=== PATIENT | male | born 1955 | race Caucasian/White ===

== ENCOUNTER 2017-07-04 11:55 | Inpatient (IN) | payer OTHER ==
--- NOTE | 2017-07-04 12:34 | PDOC ---
History of Present Illness - General Chief Complaint: Shortness of Breath Stated Complaint: SOB Time Seen by Provider: 07/04/17 12:34 - History of Present Illness Initial Comments: 07/04/17 12:41 hx HL, HTN, obesity, CHF, DM, etoh use p/w SOB for 1 week. SOB is intermittent, but now occurring at rest as well. No treatments tried. SOB a/w nausea. No CP. Exercise tolerance is reduced to 1-2 blocks. Reports compliance with lasix. Reports swelling to LE. Drinks pint of vodka nightly, drank last night. Has not drank more than usual this past week. Also ate a heavy meal last night and for . Saw PMD last week, who referred him to cards due to SOB. Was scheduled for echo and stress test next week but SOB became worse today and presented to the ED. Past History - Past Medical History Allergies/Adverse Reactions: Allergies Allergy/AdvReac Type Severity Reaction Status Date / Time No Known Allergies Allergy Verified 07/04/17 11:58 Home Medications: Ambulatory Orders Aspirin [Aspirin EC] 81 mg PO DAILY 07/04/17 Diltiazem [Cardizem -] 120 mg PO DAILY 07/04/17 Furosemide [Lasix -] 40 mg PO DAILY 07/04/17 Insulin Lispro Protamin/Lispro [Humalog Mix 75-25 Kwikpen] 40 unit SQ BID Insulin Lispro [Humalog] 10 unit SQ TID 07/04/17 Metoprolol Succinate [Toprol Xl] 50 mg PO BID 07/04/17 Simvastatin 20 mg PO DAILY 07/04/17 COPD: No Diabetes: Yes HTN: Yes Hypercholesterolemia: Yes - Suicide/Smoking/Psychosocial Hx Smoking History: Former smoker Have you smoked in the past 12 months: No If you are a former smoker, when did you quit?: 'MANY YEARS' Information on smoking cessation initiated: No Hx Alcohol Use: (daily) Drug/Substance Use Hx: No Substance Use Type: None Hx Substance Use Treatment: No Review of Systems - Review of Systems Comments:: 07/04/17 12:44 GENERAL/CONSTITUTIONAL: No fever or chills. No weakness. HEAD, EYES, EARS, NOSE AND THROAT: No change in vision. No ear pain or discharge. No sore throat. GASTROINTESTINAL: +nausea, novomiting, diarrhea or constipation. GENITOURINARY: No dysuria, frequency, or change in urination. CARDIOVASCULAR: No chest pain +shortness of breath. RESPIRATORY: No cough, wheezing, or hemoptysis. MUSCULOSKELETAL: No joint or muscle swelling or pain. No neck or back pain. +LE edema SKIN: No rash NEUROLOGIC: No headache, vertigo, loss of consciousness, or change in strength/ sensation. ENDOCRINE: No increased thirst. No abnormal weight change. HEMATOLOGIC/LYMPHATIC: No anemia, easy bleeding, or history of blood clots. ALLERGIC/IMMUNOLOGIC: No hives or skin allergy. *Physical Exam - Vital Signs Last Vital Signs Temp Pulse Resp BP Pulse Ox 97.7 F 96 H 20 148/86 97 07/04/17 11:55 07/04/17 11:55 07/04/17 11:55 07/04/17 11:55 07/04/17 11:55 - Physical Exam Comments: 07/04/17 12:48 GENERAL: Awake, alert, and fully oriented, in no acute distress HEAD: No signs of trauma EYES: PERRLA, EOMI, sclera anicteric, conjunctiva clear ENT: Auricles normal inspection, hearing grossly normal, nares patent, oropharynx clear without exudates. Moist mucosa NECK: Normal ROM, supple, no lymphadenopathy, JVD, or masses LUNGS: diminished BS at the bases, clear to auscultation bilaterally. No wheezes, and no crackles HEART: irregularly irregular, rate 90, normal S1 and S2, no murmurs, rubs or gallops ABDOMEN: Soft, nontender, normoactive bowel sounds. No guarding, no rebound. No masses. EXTREMITIES: Normal range of motion, 1+ pitting symmetric edema. No clubbing or cyanosis. No cords, erythema, or tenderness NEUROLOGICAL: Normal speech, cranial nerves intact, negative pronator drift, 5/ 5 strength in all 4 extremities, normal sensation to light touch in all 4 extremities, normal cerebellar exam, normal gait, normal reflexes and tone SKIN: Warm, Dry, normal turgor, no rashes or lesions noted. Heart Score/ECG Review - History History: Moderately suspicious - Electrocardiogram EKG: Non specific repolarization disturbance - Age Age: 45-65 - Risk Factors Based on the list above the patient has:: >/=3 risk factors or Hx atherosclerotic disease - Troponin Troponin: </= normal limit - Score Heart Score - Total: 5 #1 07/04/17 12:55 Twelve-lead EKG was performed and reviewed by me. Atrial fibrillation with a rate of 105. Normal axis. No ST elevations.+ Inferior lateral T-wave inversions and submillimeter [address] depressions. No history Afib ED Treatment Course - LABORATORY CBC & Chemistry Diagram: 07/04/17 12:45 07/04/17 12:45 Medical Decision Making - Medical Decision Making 07/04/17 12:56 62-year-old man with multiple medical problems presents with 1 week of progressive shortness of breath and new onset atrial fibrillation. Differential includes CHF versus ACS. Patient drinks alcohol daily which may cause atrial fibrillation however given heart failure it's unclear what the etiology is. Patient will require admission for shortness of breath as he is mod risk for cardiac events (heart score 5). CHADS vasc score is 4, pt will need AC for his Afib. 07/04/17 14:35 Troponin negative. BNP elevated to the thousands, likely consistent with CHF. Will admit for ACS rule out and for management of atrial fibrillation. Patient has been admitted to Dr. Apodaca for further management. Case discussed in detail with admitting physician including history, physical exam and ancillary studies. Admitting physician has assumed care for the patient, will follow all pending diagnostics and will complete the evaluation and treatment. *DC/Admit/Observation/Transfer Diagnosis at time of Disposition: Atrial fibrillation - Discharge Dispostion Condition at time of disposition: Stable Admit: Yes - Referrals - Patient Instructions - Post Discharge Activity - Attestations Physician Attestion: 07/04/17 15:00 I, Dr. Sol Lawrence MD, attest that this document has been prepared under my direction and personally reviewed by me in its entirety. I further attest, that it accurately reflects all work, treatment, procedures and medical decision -making performed by me.
[2017-07-04] MEDS ORDERED: ASPIRIN 325 MG TABLET PO ONE (12:59)
[2017-07-04] MEDS ORDERED: HEMOQUE TEST 1 EACH EACH ONE (13:04)
[2017-07-04] MEDS ORDERED: ASPIRIN 325 MG TABLET ONE (13:05)
[2017-07-04 13:09] LABS: BASOPHIL 0.4 % (0-2.0); EOSINOPHIL 0.9 % (0-4.5); MCH 31.7 pg (25.7-33.7); MEAN CELL VOLUME 93.1 fl (80-96); MEAN PLT VOLUME 7.8 fl (7.5-11.1); NEUTROPHILS 81.8 % (42.8-82.8); PLATELET COUNT 210 K/MM3 (134-434); RDW 11.8 % (11.9-15.9); WHITE BLOOD COUNT 9.4 K/mm3 (4.0-10.8)
[2017-07-04 13:31] LABS: ALBUMIN 3.8 g/dl (3.5-5.0); ALK PHOS 68 U/L (32-92); ANION GAP 11 (8-16); BILIRUBIN,TOTAL 0.8 mg/dl (0.2-1.0); CALCIUM 9.2 mg/dl (8.4-10.2); CO2 25 mmol/L (22-28); CREATININE 1.4 mg/dl (0.6-1.3); GLUCOSE,RANDOM 94 mg/dl (74-106); MAGNESIUM 1.8 mg/dL (1.8-2.4); SGOT/AST 59 U/L (10-42); SGPT/ALT 53 U/L (10-40)
[2017-07-04 14:51] LABS: ACTIVATED PTT 26.4 SECONDS (24.0-38.9)
[2017-07-04 14:56] LABS: INR 1.16 (0.82-1.09); PROTHROMBIN TIME (PATIENT) 12.9 SEC (10.2-13.0)
[2017-07-04 15:15] LABS: THYROID STIMULATING HORMONE 1.46 uIU/ml (0.358-3.74)
--- NOTE | 2017-07-04 15:45 | HP ---
CHIEF COMPLAINT: SOB, palpitations and weakness PCP: Silvina Cards: Maximino HISTORY OF PRESENT ILLNESS: This is a 62 yo man with pmhx CHF, afib, HTN, IDDM, HLD, ETOH use who presents with progressive SOB over 1 week. The patient states he has noticed decreased exercise tolerance to 2-3 [place]is[place] the [employer]. The patient states PND with 2 episodes nightly over the week. He saw his PMD for these symptoms and was referred to Dr. Stanton who scheduled patient for echo on 07/06. He denies chest pain, dizziness, cough, fevers, chills, abdominal pain , nausea and vomiting. ER course was notable for: (1) EKG afib with TWI V5, V6 Recent Travel: denies PAST MEDICAL HISTORY: see HPI PAST SURGICAL HISTORY: see HPI Social History: Smoking: denies Alcohol: 1 pint of vodka daily Drugs: denies Family History: Allergies No Known Allergies Allergy (Verified 07/04/17 11:58) HOME MEDICATIONS: Home Medications Medication Instructions Recorded Aspirin [Aspirin EC] 81 mg PO DAILY 07/04/17 Diltiazem [Cardizem -] 120 mg PO DAILY 07/04/17 Furosemide [Lasix -] 40 mg PO DAILY 07/04/17 Insulin Lispro Protamin/Lispro 40 unit SQ BID 07/04/17 [Humalog Mix 75-25 Kwikpen] Insulin Lispro [Humalog] 10 unit SQ TID 07/04/17 Metoprolol Succinate [Toprol Xl] 50 mg PO BID 07/04/17 Simvastatin 20 mg PO DAILY 07/04/17 REVIEW OF SYSTEMS CONSTITUTIONAL: Present- generalized weakness Absent: fever, chills, diaphoresis, malaise, loss of appetite, weight change HEENT: Absent: rhinorrhea, nasal congestion, throat pain, throat swelling, difficulty swallowing, mouth swelling, ear pain, eye pain, visual changes CARDIOVASCULAR: Present- palpitations, irregular heart rate Absent: chest pain, syncope, lightheadedness, peripheral edema RESPIRATORY: Present- shortness of breath Absent: cough, dyspnea with exertion, orthopnea, wheezing, stridor, hemoptysis GASTROINTESTINAL: Absent: abdominal pain, abdominal distension, nausea, vomiting, diarrhea, constipation, melena, hematochezia GENITOURINARY: Absent: dysuria, frequency, urgency, hesitancy, hematuria, flank pain, genital pain MUSCULOSKELETAL: Absent: myalgia, arthralgia, joint swelling, back pain, neck pain SKIN: Absent: rash, itching, pallor HEMATOLOGIC/IMMUNOLOGIC: Absent: easy bleeding, easy bruising, lymphadenopathy, frequent infections ENDOCRINE: Absent: unexplained weight gain, unexplained weight loss, heat intolerance, cold intolerance NEUROLOGIC: Absent: headache, focal weakness or paresthesias, dizziness, unsteady gait, seizure, mental status changes, bladder or bowel incontinence PSYCHIATRIC: Absent: anxiety, depression, suicidal or homicidal ideation, hallucinations. PHYSICAL EXAMINATION Vital Signs - 24 hr 07/04/17 07/04/17 11:55 15:21 Temperature 97.7 F 97.6 F Pulse Rate 96 H Pulse Rate [ 80 Left Apical] Respiratory 20 16 Rate Blood Pressure 148/86 Blood Pressure 152/76 [Right Arm] O2 Sat by Pulse 97 97 Oximetry (%) GENERAL: Awake, alert, and fully oriented, in no acute distress. HEAD: Normal with no signs of trauma. EYES: Pupils equal, round and reactive to light, extraocular movements intact, sclera anicteric, conjunctiva clear. No lid lag. Right eye amblyopia present. EARS, NOSE, THROAT: Ears normal, nares patent, oropharynx clear without exudates. Moist mucous membranes. NECK: Normal range of motion, supple without lymphadenopathy, JVD, or masses. LUNGS: Breath sounds equal, clear to auscultation bilaterally. No wheezes, and no crackles. No accessory muscle use. HEART: Irregular rate and rhythm, normal S1 and S2 without murmur, rub or gallop. ABDOMEN: Soft, nontender, not distended, normoactive bowel sounds, no guarding, no rebound, no masses. No hepatomegaly or splenomegaly. MUSCULOSKELETAL: Normal range of motion at all joints. No bony deformities or tenderness. No CVA tenderness. UPPER EXTREMITIES: 2+ pulses, warm, well-perfused. No cyanosis. No clubbing. No peripheral edema. LOWER EXTREMITIES: 2+ pulses, warm, well-perfused. No calf tenderness. +2 peripheral edema. NEUROLOGICAL: Cranial nerves II-XII intact. Normal speech. Normal gait. PSYCHIATRIC: Cooperative. Good eye contact. Appropriate mood and affect. SKIN: Warm, dry, normal turgor, no rashes or lesions noted, normal capillary refill. Laboratory Results - last 24 hr 07/04/17 07/04/17 07/04/17 12:45 12:45 12:45 WBC 9.4 RBC 4.41 Hgb 13.9 Hct 41.0 MCV 93.1 MCH 31.7 MCHC 34.0 RDW 11.8 L Plt Count 210 MPV 7.8 Neutrophils % 81.8 Lymphocytes % 11.0 D Monocytes % 5.9 Eosinophils % 0.9 Basophils % 0.4 PT with INR INR PTT (Actin FS) Sodium 131 L Potassium 4.1 Chloride 95 L Carbon Dioxide 25 Anion Gap 11 BUN 22 H Creatinine 1.4 H Creat Clearance w eGFR 51.35 Random Glucose 94 D Calcium 9.2 Magnesium 1.8 Total Bilirubin 0.8 AST 59 H D ALT 53 H D Alkaline Phosphatase 68 Troponin I B-Natriuretic Peptide 1266.33 H Total Protein 7.0 Albumin 3.8 Lipase 29 TSH 1.46 D 07/04/17 07/04/17 12:45 14:30 WBC RBC Hgb Hct MCV MCH MCHC RDW Plt Count MPV Neutrophils % Lymphocytes % Monocytes % Eosinophils % Basophils % PT with INR 12.9 INR 1.16 PTT (Actin FS) 26.4 Sodium Potassium Chloride Carbon Dioxide Anion Gap BUN Creatinine Creat Clearance w eGFR Random Glucose Calcium Magnesium Total Bilirubin AST ALT Alkaline Phosphatase Troponin I 0.02 B-Natriuretic Peptide Total Protein Albumin Lipase Cancelled TSH EKG- Afib with TWI V5, V6 ASSESSMENT/PLAN: A: 62 yo man with PMH CHF, afib, HTN, IDDM, ETOH use with afib P: afib - Chads2 score-4 - not on AC due to frequent falls - Cardizem - Toprol - Cards consult - telemetry monitoring - Serial troponins CHF - telemetry - Daily weights - strict I&O's - Lasix - Cards consult HTN - Toprol - Dilt DM - FS qACHS - ISS ETOH abuse - CIWAr- 0 - Librium prn - Folate - thiamine - monitor HLD - Lipitor F/E/N - Low Na diet - replete prn PPX - OOB Dispo- requires observation of his acute medical condition. Visit type - Emergency Visit Emergency Visit: Yes ED Registration Date: 07/04/17 Care time: The patient presented to the Emergency Department on the above date and was hospitalized for further evaluation of their emergent condition. - New Patient This patient is new to me today: Yes Date on this admission: 07/05/17 - Critical Care Critical Care patient: No
[2017-07-04 15:51] VITALS: BMI 40.1
--- NOTE | 2017-07-04 16:29 | EKG ---
Test Reason : Blood Pressure : / mmHG Vent. Rate : 105 BPM Atrial Rate : 234 BPM P-R Int : 000 ms QRS Dur : 078 ms QT Int : 348 ms P-R-T Axes : 000 045 266 degrees QTc Int : 459 ms ATRIAL FIBRILLATION WITH RAPID VENTRICULAR RESPONSE CANNOT RULE OUT SEPTAL INFARCT , AGE UNDETERMINED NONSPECIFIC ST AND T WAVE ABNORMALITY ABNORMAL ECG NO PREVIOUS ECGS AVAILABLE Confirmed by YASMANY HART MD ([id number]) on 07/04/2017 4:28:59 PM Referred By: PAUL Confirmed By:YASMANY HART MD
[2017-07-04] MEDS ORDERED: INSULIN (NOVOLOG) ASPART 100 UNITS/ML 10ML VIAL ONE ×2 (17:13→21:35)
[2017-07-04] MEDS: INSULIN SLIDING SCALE (NOVOLOG) 1 VIAL SQ SCH ×2 (17:16→21:39)
[2017-07-04] MEDS ORDERED: chlordiazePOXIDE HCL 25 MG CAPSULE PO PRN (18:53)
[2017-07-04] MEDS: METOPROLOL SUCCINATE 50 MG TAB.SR.24H (FP) PO SCH (21:39)
[2017-07-04] MEDS ORDERED: INSULIN SLIDING SCALE (NOVOLOG) 1 VIAL SQ SCH (22:00)
[2017-07-05] MEDS ORDERED: ZOLPIDEM TARTRATE 5 MG TABLET PO ONE (00:23)
[2017-07-05] MEDS ORDERED: INSULIN (NOVOLOG) ASPART 100 UNITS/ML 10ML VIAL ONE ×2 (06:44→21:11)
[2017-07-05] MEDS: INSULIN SLIDING SCALE (NOVOLOG) 1 VIAL SQ SCH ×4 (06:46→21:03)
[2017-07-05] MEDS ORDERED: THIAMINE HCL 100 MG TABLET (FP) PO SCH (08:00)
[2017-07-05] MEDS ORDERED: FOLIC ACID 1 MG TABLET (FP) PO SCH (08:00)
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
[2017-07-05 08:45] LABS: BASOPHIL 0.6 % (0-2.0); EOSINOPHIL 1.1 % (0-4.5); MCH 32.8 pg (25.7-33.7); MCHC 34.7 g/dl (32.0-35.9); MEAN CELL VOLUME 94.6 fl (80-96); MEAN PLT VOLUME 8.1 fl (7.5-11.1); NEUTROPHILS 76.1 % (42.8-82.8); PLATELET COUNT 164 K/MM3 (134-434); RDW 12.4 % (11.9-15.9); WHITE BLOOD COUNT 7.9 K/mm3 (4.0-10.8)
[2017-07-05] MEDS ORDERED: FUROSEMIDE 40 MG/4 ML INJECTABLE VIAL IVPUSH SCH (08:45)
[2017-07-05 09:14] LABS: ANION GAP 10 (8-16); CALCIUM 8.5 mg/dl (8.4-10.2); CO2 25 mmol/L (22-28); CREATININE 1.3 mg/dl (0.6-1.3); GLUCOSE,RANDOM 271 mg/dl (74-106)
[2017-07-05 09:42] LABS: TROPONIN I 0.01 ng/ml (0.00-0.05)
[2017-07-05] MEDS: ASPIRIN COATED 81 MG TABLET.EC PO SCH (09:44)
[2017-07-05] MEDS: FOLIC ACID 1 MG TABLET (FP) PO SCH (09:44)
[2017-07-05] MEDS: dilTIAZem HCL 60 MG TABLET (FP) PO SCH (09:44)
[2017-07-05] MEDS: ATORVASTATIN CA 10 MG TABLET (FP) PO SCH (09:45)
[2017-07-05] MEDS: METOPROLOL SUCCINATE 50 MG TAB.SR.24H (FP) PO SCH ×2 (09:45→21:12)
[2017-07-05] MEDS: THIAMINE HCL 100 MG TABLET (FP) PO SCH ×2 (09:45→09:54)
[2017-07-05] MEDS: FUROSEMIDE 40 MG/4 ML INJECTABLE VIAL IVPUSH SCH ×2 (09:45→09:54)
--- NOTE | 2017-07-05 09:46 | PN ---
Physical Exam: SUBJECTIVE: Patient seen and examined Reports feeling better,denies cp, sob or palpitations. OBJECTIVE: Vital Signs Period Temp Pulse Resp BP Sys/Zaman Pulse Ox Last 24 Hr 97.4 F-97.9 F 75-96 16-20 122-152/54-86 97-99 GENERAL: The patient is awake, alert, and fully oriented, in no acute distress. HEAD: Normal with no signs of trauma. EYES: PERRL, extraocular movements intact, sclera anicteric, conjunctiva clear. No ptosis. ENT: Ears normal, nares patent, oropharynx clear without exudates, moist mucous membranes. NECK: Trachea midline, full range of motion, supple. LUNGS: Breath sounds equal, clear to auscultation bilaterally, no wheezes, no crackles, no accessory muscle use. HEART: Irregular rhythm, without murmur, rub or gallop. ABDOMEN: Soft, nontender, nondistended, normoactive bowel sounds, no guarding, no rebound, no hepatosplenomegaly, no masses. EXTREMITIES: 2+ pulses, warm, well-perfused, no edema. NEUROLOGICAL: Cranial nerves II through XII grossly intact. Normal speech, gait not observed. PSYCH: Normal mood, normal affect. SKIN: Warm, dry, normal turgor, no rashes or lesions noted Laboratory Results - last 24 hr 07/04/17 07/04/17 07/04/17 12:45 12:45 12:45 WBC 9.4 RBC 4.41 Hgb 13.9 Hct 41.0 MCV 93.1 MCH 31.7 MCHC 34.0 RDW 11.8 L Plt Count 210 MPV 7.8 Neutrophils % 81.8 Lymphocytes % 11.0 D Monocytes % 5.9 Eosinophils % 0.9 Basophils % 0.4 PT with INR INR PTT (Actin FS) Sodium 131 L Potassium 4.1 Chloride 95 L Carbon Dioxide 25 Anion Gap 11 BUN 22 H Creatinine 1.4 H Creat Clearance w eGFR 51.35 POC Glucometer Random Glucose 94 D Calcium 9.2 Magnesium 1.8 Total Bilirubin 0.8 AST 59 H D ALT 53 H D Alkaline Phosphatase 68 Troponin I B-Natriuretic Peptide 1266.33 H Total Protein 7.0 Albumin 3.8 Lipase 29 TSH 1.46 D 07/04/17 07/04/17 07/04/17 12:45 14:30 16:59 WBC RBC Hgb Hct MCV MCH MCHC RDW Plt Count MPV Neutrophils % Lymphocytes % Monocytes % Eosinophils % Basophils % PT with INR 12.9 INR 1.16 PTT (Actin FS) 26.4 Sodium Potassium Chloride Carbon Dioxide Anion Gap BUN Creatinine Creat Clearance w eGFR POC Glucometer 237 Random Glucose Calcium Magnesium Total Bilirubin AST ALT Alkaline Phosphatase Troponin I 0.02 B-Natriuretic Peptide Total Protein Albumin Lipase Cancelled TSH 07/04/17 07/04/17 07/05/17 18:20 21:31 05:55 WBC 7.9 RBC 4.00 Hgb 13.1 Hct 37.8 MCV 94.6 MCH 32.8 MCHC 34.7 RDW 12.4 Plt Count 164 D MPV 8.1 Neutrophils % 76.1 Lymphocytes % 14.1 D Monocytes % 8.1 Eosinophils % 1.1 Basophils % 0.6 PT with INR INR PTT (Actin FS) Sodium Potassium Chloride Carbon Dioxide Anion Gap BUN Creatinine Creat Clearance w eGFR POC Glucometer 266 Random Glucose Calcium Magnesium Total Bilirubin AST ALT Alkaline Phosphatase Troponin I 0.01 D B-Natriuretic Peptide Total Protein Albumin Lipase TSH 07/05/17 07/05/17 05:55 06:08 WBC RBC Hgb Hct MCV MCH MCHC RDW Plt Count MPV Neutrophils % Lymphocytes % Monocytes % Eosinophils % Basophils % PT with INR INR PTT (Actin FS) Sodium 130 L Potassium 4.0 Chloride 95 L Carbon Dioxide 25 Anion Gap 10 BUN 21 H Creatinine 1.3 Creat Clearance w eGFR POC Glucometer 261 Random Glucose 271 H D Calcium 8.5 Magnesium Total Bilirubin AST ALT Alkaline Phosphatase Troponin I 0.01 B-Natriuretic Peptide Total Protein Albumin Lipase TSH Active Medications Generic Name Dose Route Start Last Admin Trade Name Freq PRN Reason Stop Dose Admin Aspirin 81 mg 07/05/17 10:00 Ecotrin - PO DAILY [facility] Atorvastatin Calcium 10 mg 07/05/17 10:00 Lipitor - PO DAILY [facility] Chlordiazepoxide HCl 50 mg 07/04/17 18:53 Librium - PO Q6HPO PRN AGITATION Diltiazem HCl 120 mg 07/05/17 10:00 Cardizem - PO DAILY [facility] Folic Acid 1 mg 07/05/17 08:45 Folic Acid - PO DAILY [facility] Furosemide 80 mg 07/05/17 08:45 Lasix Injection - IVPUSH DAILY [facility] Insulin Aspart 1 vial 07/04/17 16:30 07/05/17 06:46 Novolog Vial Sliding Scale - SQ 6 units ACHS [facility] Administration Protocol Metoprolol Succinate 50 mg 07/04/17 22:00 07/04/17 21:39 Toprol Xl - PO 50 mg BID [facility] Administration Thiamine HCl 100 mg 07/05/17 08:45 Vitamin B1 - PO DAILY [facility] EKG- Afib with TWI V5, V6 ASSESSMENT/PLAN: This is a 62 yo man with PMH CHF, afib not on AC due to fall rsk, HTN, IDDM, ETOH use, who presented with worsening SOB, * Hx of afib- HR 80-90's now - Chads2 score-4 - not on AC due to frequent falls - will cont on Cardizem/Toprol - Cards input appreciated - telemetry monitoring - Serial troponins neg x3 *CHF-improving - telemetry - Daily weights - strict I&O's - Lasix - Cards following - plan stress test in am - Echo in am * Hyponatremia - likely due to diuretic and ETOH use - NA 130 today (baseline 134) - will monitor NA level closely *HTN- BP stable - will cont on Toprol and Cardizem *DM- BS - FS qACHS - ISS *ETOH abuse- No DT noted - CIWAR- 0 - Librium prn - Folate - thiamine - monitor *HLD - Lipitor F/E/N - Low Na diet - replete prn PPX - OOB Dispo: Home once medically cleared,needs further in pt w/u. Addendum: Pt HR dropped to 30's, asymptomatic, now HR in 60's. Visit type - Emergency Visit Emergency Visit: Yes ED Registration Date: 07/04/17 Care time: The patient presented to the Emergency Department on the above date and was hospitalized for further evaluation of their emergent condition. - New Patient This patient is new to me today: Yes Date on this admission: 07/05/17 - Critical Care Critical Care patient: No
[2017-07-05] MEDS ORDERED: FUROSEMIDE 40 MG TABLET (FP) PO SCH (10:00)
[2017-07-05] MEDS ORDERED: PT OWN MED DRAWER 7, Y5N ONE (21:06)
[2017-07-05] MEDS ORDERED: REFRIGERATED ANITBIOTICS ONE (21:08)
[2017-07-05] MEDS: PATIENT'S OWN MEDICATION (NON-FORMULARY) (Insulin Lispro Protamin/Lispro [Humalog Mix 75-2 SQ SCH (21:17)
[2017-07-06] MEDS: INSULIN SLIDING SCALE (NOVOLOG) 1 VIAL SQ SCH ×4 (07:51→22:53)
[2017-07-06] MEDS: PATIENT'S OWN MEDICATION (NON-FORMULARY) (Insulin Lispro Protamin/Lispro [Humalog Mix 75-2 SQ SCH ×2 (07:51→22:53)
[2017-07-06] MEDS: ASPIRIN COATED 81 MG TABLET.EC PO SCH (09:01)
[2017-07-06] MEDS: dilTIAZem HCL 60 MG TABLET (FP) PO SCH (09:01)
--- NOTE | 2017-07-06 09:16 | PN ---
Physical Exam: SUBJECTIVE: Patient seen and examined, reports feeling better, denies any chest pain or shortness of breath, awaiting stress test and echo OBJECTIVE: patient is a 62 yo man with pmhx CHF, afib, HTN, IDDM, HLD, ETOH, Patient was admitted from the emergency department for new onset afib. Vital Signs Period Temp Pulse Resp BP Sys/Zaman Pulse Ox Last 24 Hr 97.4 F-98.4 F 55-87 18-20 115-154/49-83 96-98 GENERAL: The patient is awake, alert, and fully oriented, in no acute distress. HEAD: Normal with no signs of trauma. EYES: PERRL, extraocular movements intact, sclera anicteric, conjunctiva clear. No ptosis. ENT: Ears normal, nares patent, oropharynx clear without exudates, moist mucous membranes. NECK: Trachea midline, full range of motion, supple. LUNGS: Breath sounds equal, clear to auscultation bilaterally, no wheezes, no crackles, no accessory muscle use. HEART: irregular rate and rhythm, S1, S2 without murmur, rub or gallop. ABDOMEN: Soft, nontender, nondistended, normoactive bowel sounds, no guarding, no rebound, no hepatosplenomegaly, no masses. EXTREMITIES: 2+ pulses, warm, well-perfused, right LE + 1 edema, chronic as per patient, left LE no edema. NEUROLOGICAL: Cranial nerves II through XII grossly intact. Normal speech, gait not observed. PSYCH: Normal mood, normal affect. SKIN: Warm, dry, normal turgor, no rashes or lesions noted Laboratory Results - last 24 hr 07/05/17 07/05/17 07/05/17 05:55 10:45 16:58 Sodium 130 L Potassium 4.0 Chloride 95 L Carbon Dioxide 25 Anion Gap 10 BUN 21 H Creatinine 1.3 POC Glucometer 372 371 Random Glucose 271 H D Calcium 8.5 Troponin I 0.01 07/05/17 07/06/17 07/06/17 20:44 01:42 02:29 Sodium Potassium Chloride Carbon Dioxide Anion Gap BUN Creatinine POC Glucometer 373 57 162 Random Glucose Calcium Troponin I 07/06/17 05:53 Sodium Potassium Chloride Carbon Dioxide Anion Gap BUN Creatinine POC Glucometer 121 Random Glucose Calcium Troponin I Laboratory Tests 07/06/17 08:07 Sodium 137 Potassium 4.3 Chloride 99 Carbon Dioxide 30 H Anion Gap 8 BUN 22 H Creatinine 1.3 Random Glucose 144 H D Calcium 9.0 Active Medications Generic Name Dose Route Start Last Admin Trade Name Anthony PRN Reason Stop Dose Admin Aspirin 81 mg 07/05/17 10:00 07/06/17 09:01 Ecotrin - PO 81 mg DAILY [facility] Administration Atorvastatin Calcium 10 mg 07/05/17 10:00 07/05/17 09:45 Lipitor - PO 10 mg DAILY [facility] Administration Chlordiazepoxide HCl 50 mg 07/04/17 18:53 Librium - PO Q6HPO PRN AGITATION Diltiazem HCl 120 mg 07/07/17 10:00 Cardizem Cd - PO DAILY [facility] Folic Acid 1 mg 07/05/17 08:45 07/05/17 09:44 Folic Acid - PO 1 mg DAILY [facility] Administration Furosemide 80 mg 07/05/17 08:45 07/05/17 09:54 Lasix Injection - IVPUSH Not Given DAILY [facility] Insulin Aspart 1 vial 07/04/17 16:30 07/06/17 07:51 Novolog Vial Sliding Scale - SQ Not Given ACHS [facility] Protocol Metoprolol Succinate 50 mg 07/04/17 22:00 07/05/17 21:12 Toprol Xl - PO 50 mg BID [facility] Administration Non-Formulary Medication 40 unit 07/05/17 22:00 07/06/17 07:51 Insulin Lispro Protamin/Lispro [Humalog Mix 75-25 Kwikpen] SQ Not Given BID@0700,2200 [facility] Thiamine HCl 100 mg 07/05/17 08:45 07/05/17 09:54 Vitamin B1 - PO Not Given DAILY [facility] ASSESSMENT/PLAN: 1) cardiovascular Hx of afib - rate controlled continue cardizem and toprol - not a good candiate due to recent falls, continue asa - troponin x 3 wnl - pending echo and stress test today - Dr Stanton consulted and following acute on chronic congestive heart failure - continue lasix with close monitoring of creatine - Daily weights and strict I&O's hypertension - b/p at goal, continue toprol and cardizem hyperlipidemia - continue lipitor 2) endo DM - fingersticks achs, with regular insulin sliding scale - tsh wnl 3) psych *ETOH abuse- No DT noted - Librium prn - Folate, - thiamine - monitor F/E/N hyponatremia - resolved, secondary to chf - Low Na diet - replete prn PPX - OOB Dispo: Home once medically cleared,needs further in pt w/u. Visit type - Emergency Visit Emergency Visit: Yes ED Registration Date: 07/05/17 Care time: The patient presented to the Emergency Department on the above date and was hospitalized for further evaluation of their emergent condition. - New Patient This patient is new to me today: Yes Date on this admission: 07/06/17 - Critical Care Critical Care patient: No - Discharge Referral Referred to [facility] Med P.C.: No
[2017-07-06 09:36] LABS: ANION GAP 8 (8-16); CO2 30 mmol/L (22-28); CREATININE 1.3 mg/dl (0.6-1.3); GLUCOSE,RANDOM 144 mg/dl (74-106)
[2017-07-06] MEDS ORDERED: REGADENOSON 0.4 MG/5 ML PRE-FILLED SYRINGE IVPUSH ONE ×2 (10:45→12:23)
[2017-07-06] MEDS: ATORVASTATIN CA 10 MG TABLET (FP) PO SCH (14:47)
[2017-07-06] MEDS: THIAMINE HCL 100 MG TABLET (FP) PO SCH (14:47)
[2017-07-06] MEDS: FOLIC ACID 1 MG TABLET (FP) PO SCH (14:47)
[2017-07-06] MEDS: FUROSEMIDE 40 MG/4 ML INJECTABLE VIAL IVPUSH SCH (14:48)
[2017-07-06] MEDS: METOPROLOL SUCCINATE 50 MG TAB.SR.24H (FP) PO SCH ×2 (14:48→22:50)
[2017-07-06] MEDS ORDERED: INSULIN (NOVOLOG) ASPART 100 UNITS/ML 10ML VIAL ONE (22:49)
[2017-07-06] MEDS ORDERED: REFRIGERATED ANITBIOTICS ONE ×2 (22:50→22:58)
[2017-07-07 05:57] VITALS: BP 141/86; PULSE 81; TEMP 98.6
[2017-07-07] MEDS ORDERED: REFRIGERATED ANITBIOTICS ONE ×3 (07:01→10:45)
[2017-07-07] MEDS: INSULIN SLIDING SCALE (NOVOLOG) 1 VIAL SQ SCH (07:01)
[2017-07-07] MEDS: PATIENT'S OWN MEDICATION (NON-FORMULARY) (Insulin Lispro Protamin/Lispro [Humalog Mix 75-2 SQ SCH (07:02)
--- NOTE | 2017-07-07 08:17 | PN ---
Progress Note, Physician Chief Complaint: sob History of Present Illness: sob is completely resolved. feels great. no cp, palpitations, LH - Current Medication List Current Medications: Active Medications Aspirin (Ecotrin -) 81 mg PO DAILY [facility] Last Admin: 07/06/17 09:01 Dose: 81 mg Atorvastatin Calcium (Lipitor -) 10 mg PO DAILY [facility] Last Admin: 07/06/17 14:47 Dose: 10 mg Chlordiazepoxide HCl (Librium -) 50 mg PO Q6HPO PRN PRN Reason: AGITATION Diltiazem HCl (Cardizem Cd -) 120 mg PO DAILY [facility] Folic Acid (Folic Acid -) 1 mg PO DAILY [facility] Last Admin: 07/06/17 14:47 Dose: 1 mg Furosemide (Lasix Injection -) 80 mg IVPUSH DAILY [facility] Last Admin: 07/06/17 14:48 Dose: 80 mg Insulin Aspart (Novolog Vial Sliding Scale -) 1 vial SQ ACHS [facility] PRN Reason: Protocol Last Admin: 07/07/17 07:01 Dose: 4 units Metoprolol Succinate (Toprol Xl -) 50 mg PO BID [facility] Last Admin: 07/06/17 22:50 Dose: 50 mg Non-Formulary Medication (Insulin Lispro Protamin/Lispro [Humalog Mix 75-25 Kwikpen]) 40 unit SQ BID@0700,2200 [facility] Last Admin: 07/07/17 07:02 Dose: 40 unit Thiamine HCl (Vitamin B1 -) 100 mg PO DAILY [facility] Last Admin: 07/06/17 14:47 Dose: 100 mg - Objective Vital Signs: Vital Signs Temperature 98.6 F 07/07/17 05:57 Pulse Rate 81 07/07/17 05:57 Respiratory Rate 19 07/07/17 05:57 Blood Pressure 141/86 07/07/17 05:57 O2 Sat by Pulse Oximetry (%) 96 07/07/17 05:57 Constitutional: Yes: No Distress, Calm, Obese Cardiovascular: Yes: Pulse Irregular, S1, S2. No: Gallop, Murmur Respiratory: Yes: Regular, CTA Bilaterally. No: Accessory Muscle Use, Rales, Wheezes Extremities: No: Cold Edema: Yes (1+ pretib) Neurological: Yes: Alert, Oriented Psychiatric: No: Agitated Labs: CBC, BMP 07/05/17 05:55 07/06/17 08:07 INR, PTT INR 1.16 (0.82-1.09) 07/04/17 14:30 - ....Imaging EKG: Other (tele: AF 70s-90s, rarely 100-110) Assessment/Plan EKG: afib 105 bpm; [id number] axis/intervals; diffse NSST-Ts CXR: clear lungs/pleura MPI 06/26 (), leonardo: no isch STs. no ischemia or infarct. low-nl EF (52%). TID ratio WNL Echo 06/26 (): nl LV size, mild, global LV hypo. RV tds. nl LA/RA. vavles WNL acute diast CHF: -EF mildly reduced vs low-normal here on imaging. -presumed chf with sx's of sob, BNP 1200. body habitus is very limiting to volume status assessment, however no overt volume. -pt does not know baseline wt or recent wt trend -CXR clear -trop neg x 2, nonsp ECG abnormalities--need to review priors (none in [place] system) -wt down 7 lbs with lasix 80 iv daily, sob resolved, labs stable -rec d/c home on torsemide 50mg daily for now, monitor wt and labs in office next week f/u -given his AF has been persistent here, will offer him attempt at DCCV as outpt with 4 wks AC following, though i suspect his obesity/EMILY and etoh abuse will lead to AF recurrence in short- to intermediate-term. -given pt's previous non-compliant behavior, rec he have echo done here (at risk for LV syst dysfxn: etoh abuse, morbid obesity with hi clinical suspicion of untx'd EMILY) -no ischemia on MPI, no anginal sx's. parox AF: -HRs have been 100-110 max on office ecg's in fib, and here on tele (mostly 80s- 90s) -had one ecg in office in flutter at 140, ? was back in sinus with HR 80s at f/ u visit with [employer] in my office few days later (no ekg done) -would like to get outpt monitoring done for 7-14 days to define if he is going in and out of fib/flutter, prior to considering DCCV (no point, if paroxysmal on his own) -cont metopr succ 50 bid, diltiazem CD 120 -HRs good here, will need holter as outpt to assess HR during activity. -not a good candidate for long-term AC given ongoing etoh abuse with mult prior etoh-related falls including head trauma at least once--ASA 81 for now -pt states he stopped etoh completely and wants to try to remain abstinent so he can take AC--i advised him he will f/u with me in few weeks in office and if remains etoh free we will start NOAC then HTN: -bp mostly controlled -cont home meds, observe trend DM: -per hospitalist HPL: -cont home meds etoh abuse: -pt counselled about cessation benefits for, among other things, AF and CHF risks
[2017-07-07] MEDS: ASPIRIN COATED 81 MG TABLET.EC PO SCH (09:19)
[2017-07-07] MEDS: METOPROLOL SUCCINATE 50 MG TAB.SR.24H (FP) PO SCH (09:24)
[2017-07-07] MEDS: FOLIC ACID 1 MG TABLET (FP) PO SCH (09:24)
[2017-07-07] MEDS: THIAMINE HCL 100 MG TABLET (FP) PO SCH (09:24)
[2017-07-07] MEDS: ATORVASTATIN CA 10 MG TABLET (FP) PO SCH (09:24)
[2017-07-07] MEDS: FUROSEMIDE 40 MG/4 ML INJECTABLE VIAL IVPUSH SCH (09:24)
--- NOTE | 2017-07-07 09:39 | DS ---
Physical Exam: SUBJECTIVE: Patient seen and examined, reports feeling better, ambulatory at bedside, denies any chest pain or shortness of breath, eager to go home. OBJECTIVE:This is a 62 yo man with pmhx CHF, afib, HTN, IDDM, HLD, ETOH use who presents with progressive SOB over 1 week. The patient states he has noticed decreased exercise tolerance to 2-3 [place]is[place] in the [employer]. The patient states PND with 2 episodes nightly over the week. He saw his PMD for these symptoms and was referred to Dr. Stanton who scheduled patient for echo on 07/06. He denies chest pain, dizziness, cough, fevers, chills, abdominal pain, nausea and vomiting. ER course was notable for: (1) EKG afib with TWI V5, V6 Vital Signs Period Temp Pulse Resp BP Sys/Zaman Pulse Ox Last 24 Hr 97.6 F-98.6 F 71-81 18-19 129-143/68-86 96-96 PHYSICAL EXAM GENERAL: The patient is awake, alert, and fully oriented, in no acute distress. HEAD: Normal with no signs of trauma. EYES: PERRL, extraocular movements intact, sclera anicteric, conjunctiva clear. ENT: Ears normal, nares patent, oropharynx clear without exudates, moist mucous membranes. NECK: Trachea midline, full range of motion, supple. LUNGS: Breath sounds equal, clear to auscultation bilaterally, no wheezes, no crackles, no accessory muscle use. HEART: irregular rate and rhythm, S1, S2 without murmur, rub or gallop. ABDOMEN: Soft, nontender, nondistended, normoactive bowel sounds, no guarding, no rebound, no hepatosplenomegaly, no masses. EXTREMITIES: 2+ pulses, warm, well-perfused, no edema. NEUROLOGICAL: Cranial nerves II through XII grossly intact. Normal speech, gait not observed. PSYCH: Normal mood, normal affect. SKIN: Warm, dry, normal turgor, no rashes or lesions noted. LABS Laboratory Results - last 24 hr 07/06/17 07/06/17 07/06/17 08:07 14:18 17:18 Sodium 137 Potassium 4.3 Chloride 99 Carbon Dioxide 30 H Anion Gap 8 BUN 22 H Creatinine 1.3 POC Glucometer 392 456 Random Glucose 144 H D Calcium 9.0 07/06/17 07/06/17 07/07/17 18:51 22:19 06:59 Sodium Potassium Chloride Carbon Dioxide Anion Gap BUN Creatinine POC Glucometer 375 222 207 Random Glucose Calcium IMAGING chest xray: no acute pathology echocardiogram (): mild left global hypokinesis, LV wnl ekg: afib nonspecific st abnormality myocardial perfusion scan (07/06/17): ef is now normal at rest 50%, at work 52% , small zone of inferior fixed defect. HOSPITAL COURSE: Patient was admitted from the emergency department to telemetry for new onset afib, rate controlled with cardizem and toprol. patient is not a good canditate for terminal worker AC because of history of alcohol abuse and recent falls. patient was placed on ASA 81mg daily. troponin x 3 wnl, echo and persantine stress test was noted as above. Dr Stanton, inbound ingredient logistics specialist consulted and following. patient was noted to have acute on chronic congestive heart failure, he was diuresed, 3kg weight loss was noted. blood pressure remained at goal with toprol and cardizem. lipitor was continued for hyperlipidemia. patient has a past medical history of niddm and fingersticks was monitored with regular insulin sliding scale. patient does have a known history of alcohol abuse and was placed on librium prn. PLAN - d/c home with toresmide, cardizem and toprol - strict follow up with Dr Stanton within 1 week - return precautions reviewed, ie chest pain, shortness of breath, dizziness, return to the emergency department. Date of Admission:07/05/17 Date of Discharge: 07/07/17 Minutes to complete discharge: 45 Discharge Summary Reason For Visit: NEW ONSET AFIB/CHF Current Active Problems Atrial fibrillation (Acute) Condition: Stable - Instructions Referrals: Dakota Valencia MD [Primary Care Provider] - - Home Medications Comprehensive Discharge Medication List: Ambulatory Orders Ambien 10 mg PO HS PRN 07/04/17 Aspirin [Aspirin EC] 81 mg PO DAILY 07/04/17 Diltiazem [Cardizem -] 120 mg PO DAILY 07/04/17 Furosemide [Lasix -] 40 mg PO DAILY 07/04/17 Insulin Lispro Protamin/Lispro [Humalog Mix 75-25 Kwikpen] 40 unit SQ BID Insulin Lispro [Humalog] 10 unit SQ TID 07/04/17 Metoprolol Succinate [Toprol Xl] 50 mg PO BID 07/04/17 Simvastatin 20 mg PO DAILY 07/04/17 - Discharge Referral Referred to [facility] Med P.C.: No
[2017-07-07] MEDS ORDERED: TORSEMIDE 100 MG TABLET PO SCH (10:00)
[2017-07-07] MEDS ORDERED: POTASSIUM CHLORIDE TABS 20 MEQ TABLET.ER (FP) PO SCH (10:00)
== END 2017-07-07 11:12 | disposition home or self-care (01) | DRG 292 ==
LOC: FER 11:55 → FM/S 15:05 → INTOOBSV 15:05 → UNDOADMOB 15:05 → FM/S 16:41 → OBSVTOIN 07-05 13:42
PROVIDERS: ADMIT Internal Medicine; ATTEND Nurse Practitioner Family
DX: I11.0 Hypertensive heart disease with heart failure (principal); N17.9 Acute kidney failure, unspecified; E87.1 Hypo-osmolality and hyponatremia; I50.31 Acute diastolic (congestive) heart failure; E66.8 Other obesity; Z68.39 Body mass index [BMI] 39.0-39.9, adult; E78.5 Hyperlipidemia, unspecified; F10.10 Alcohol abuse, uncomplicated; Z87.891 Personal history of nicotine dependence; I48.0 Paroxysmal atrial fibrillation; E11.9 Type 2 diabetes mellitus without complications; Z79.4 Long term (current) use of insulin
CPT/HCPCS: 36415; 71020-TC; 78452-TC; 80048; 80053; 83690; 83735; 83880; 84443; 84484; 85025; 85610; 85730; 93005; 93017; 93306-TC; 99284-25; A9502; G0378; J2785